=== PATIENT | male | born 1975 | race Hispanic/Latino ===

== ENCOUNTER 2019-10-09 08:04 | Emergency (ER) | payer OTHER ==
[2019-10-09] MEDS ORDERED: IBUPROFEN 600 MG TABLET ONE (09:07)
== END 2019-10-09 10:02 | disposition home or self-care (01) ==
LOC: EDH 08:04
DX: S92.501A Displaced unspecified fracture of right lesser toe(s), initial encounter for closed fracture (principal); Z72.0 Tobacco use; X58.XXXA Exposure to other specified factors, initial encounter; Y93.89 Activity, other specified; Y92.89 Other specified places as the place of occurrence of the external cause; Y99.8 Other external cause status
CPT/HCPCS: 73660

== ENCOUNTER 2025-11-08 15:24 | Emergency (ER) | payer SELFPAY ==
[~2025-11-08] VITALS: Ht 165.1 cm; Wt 78.0 kg
--- NOTE | 2025-11-08 15:41 | ERN ---
ED Note History of Present Illness Stated Complaint: LOWER EXTREMITY PAIN Chief Complaint: Lower Extremity Pain/Injury Time Seen by MD: 15:34 Time Seen by Midlevel: 15:34 Dictation: The patient is a 50-year-old male with history of right hand surgery and eczema who presents to the emergency department with complaints of left knee pain and swelling onset two weeks ago. Patient reports he slipped on mud and twisted his knee. Denies any fall from the event. Patient reports he has been ambulatory but is concerned for the swelling. Denies any fevers. Allergies: Coded Allergies: No Known Drug Allergies (Unverified Allergy, Unknown, 11/08/25) Past Medical History Past Medical History: No Pertinent History Surgical History: None RN Note Reviewed/Agreed w/PFSH: Yes Review of System Dictation Constitutional: Negative for fever,chills, and weight loss Eyes: Negative for injury, pain,redness, and discharge ENT: Negative for injury,pain or swelling Cardiovascular: Negative for chest pain, palpitations, and edema Respiratory: Negative for shortness of breath, cough, and wheezing, Abdomen/GI: Negative for abdominal pain, nausea, vomiting, diarrhea, and constipation Back: Negative for injury and pain : Negative for injury, bleeding and discharge MS/Extremity: Positive for left knee pain and swelling Skin: Negative for rash, and discoloration Neuro: Negative for headache, weakness, numbness, tingling, and seizure Psych: Negative for suicide ideation, homicidal ideation, and hallucinations Initial Vital Sign VS Vital Signs Date Time Temp Pulse Resp B/P (MAP) Pulse Ox O2 Delivery O2 Flow Rate FiO2 11/08/25 15:25 98.4 92 18 149/91 99 Room Air 11/08/25 16:00 0 21 Physical Exam Dictation Vital Signs reviewed General Appearance: Alert, oriented x 3, no acute distress, well developed, nourished. Head and Face: non-traumatic. Eyes: PERRL, pink conjunctivas, eyelid no trauma, anterior chamber with arcus senilis. Ears: Pinnas intact and no signs of trauma or erythema ear canals clear and no discharge TM no erythema Nose: No discharge, no bleeding. Oropharynx: Mouth normal, tongue pink. pharynx clear,no erythema, tonsils no exudates, no abscesses noted, mucous membrane moist Neck: Supple, non-tender, no thyromegaly, no masses, no JVD, no bruits Breast:Deferred Chest:No tenderness, no crepitus, no paradoxical movement, no retractions Lungs:Clear, well-ventilated, symmetric, no rales, no wheezing, no rhonchi, no stridor, good breath sounds bilaterally Heart: Regular rate, regular rhythm, no murmur, no gallops Vascular: left lower leg 1+ edema, scattered mild erythema dorsalis pedis 3+ bilaterally Abdomen: Soft, positive bowel sounds, nondistended, no guarding, nontender, no rebound, no masses no hepatomegaly, no splenomegaly, no Baker's sign, no hernias. Rectal: Deferred Genital: Deferred Neurological: Normal speech, motor function intact, sensory function intact Musculoskeletal: Neck nontender, full range of motion, back nontender, full range of motion, Extremities: nontender, full range of motion , left knee swelling, full range of motion, Skin: Color pink, dry, no turgor, no rash, no lacerations, no abrasions, no contusions. Lymphatic: Deferred Results (Laboratory/Radiology) Laboratory/Radiology Laboratory Tests Test 11/08/25 16:11 White Blood Count 5.3 K/uL (4.8-10.8) Red Blood Count 4.43 MIL/uL (4.50-6.20) L Hemoglobin 14.1 g/dL (14.0-18.0) Hematocrit 40.8 % (42-54) L Mean Corpuscular Volume 92.1 fL (79-99) Mean Corpuscular Hemoglobin 31.8 pg (27.0-33.0) Mean Corpuscular Hemoglobin Concent 34.6 g/dL (32.0-36.0) Red Cell Distribution Width 12.1 % (11.0-15.5) Platelet Count 224 K/uL (130-400) Mean Platelet Volume 8.9 fL (7.5-10.5) Immature Granulocyte % (Auto) 0.2 % (0-1) Neutrophils (%) (Auto) 65.5 % (40.0-77.0) Lymphocytes (%) (Auto) 21.1 % (21.0-51.0) Monocytes (%) (Auto) 10.9 % (3.0-13.0) Eosinophils (%) (Auto) 1.5 % (0.0-8.0) Basophils (%) (Auto) 0.8 % (0.0-5.0) Neutrophils # (Auto) 3.5 K/uL (1.8-7.7) Lymphocytes # (Auto) 1.1 K/uL (1.0-4.8) Monocytes # (Auto) 0.6 K/uL (0.1-1.0) Eosinophils # (Auto) 0.08 K/uL (0.00-0.70) Basophils # (Auto) 0.04 K/uL (0.00-0.20) Absolute Immature Granulocyte (auto 0.01 K/uL (0-1) Nucleated Red Blood Cells 0.0 % (0.0-0.19) Sodium Level 127 mmol/L (136-145) L Potassium Level 3.7 mmol/L (3.5-5.1) Chloride Level 93 mmol/L (101-111) L Carbon Dioxide Level 24 mmol/L (21-32) Blood Urea Nitrogen 4 mg/dL (7-18) L Creatinine 0.5 mg/dL (0.5-1.3) Glomerular Filtration Rate Calc 126 mL/min (>90) Random Glucose 74 mg/dL (70-105) Total Calcium 8.8 mg/dL (8.5-10.1) Labs Reviewed?: Yes ED Course ED Course Orders Procedure Category Date Status Time Knee 3vws Lt RAD 11/08/25 Resulted 15:37 Cbc With Differential LAB 11/08/25 Complete 15:37 Basic Metabolic Panel LAB 11/08/25 Complete 15:37 Ketorolac 60mg/2ml PHA 11/08/25 Complete (Toradol 60mg/2ml) 16:00 0.9%Nacl 1000ml (Ns PHA 11/08/25 Complete 1000ml) 17:00 Current Medications Medications (Trade) Dose Ordered Sig/Fredi Route PRN Reason Start Time Stop Time Status Last Admin Dose Admin Ketorolac Tromethamine (toRADol 60MG/ 2ML) 60 mg ONCE ONCE IM 11/08/25 16:00 11/08/25 16:01 DC Sodium Chloride 1,000 ml @ 0 mls/hr ONCE ONCE IV 11/08/25 17:00 11/08/25 17:01 DC Vital Signs Date Time Temp Pulse Resp B/P (MAP) Pulse Ox O2 Delivery O2 Flow Rate FiO2 11/08/25 16:00 98.4 88 18 141/76 99 Room Air* 0 21 11/08/25 15:25 98.4 92 18 149/91 99 Room Air Medical Decision Making MDM The patient is a 50-year-old male with history of right hand surgery and eczema who presents to the emergency department with complaints of left knee pain and swelling onset two weeks ago. Patient reports he slipped on mud and twisted his knee. Denies any fall from the event. Patient reports he has been ambulatory but is concerned for the swelling. Denies any fevers. Differential diagnosis: Knee sprain, knee effusion, DVT, cellulitis I was informed by the nurse that patient left AMA. Reports he needs to go DX & DISP Disposition: AMA Departure Condition: Stable Referrals: SELF,REFERRAL (PCP) I have reviewed the case, and I agree with, Diagnosis and Plan [facility] Nov 08, 2025 15:41
[2025-11-08 16:00] VITALS: BP 141/76; PULSE 88; RESP 18; TEMP 98.4; O2SAT 99
[2025-11-08 16:18] LABS: IMMATURE GRANULOCYTE ABSOLUTE 0.01 K/uL (0-1); NUCLEATED RED BLOOD CELLS 0.0 % (0.0-0.19); PLATELET COUNT (AUTO) 224 K/uL (130-400); RED BLOOD CELL COUNT(AUTO) 4.43 MIL/uL (4.50-6.20); RED CELL DISTRIBUTION WIDTH 12.1 % (11.0-15.5); WHITE BLOOD COUNT (AUTO) 5.3 K/uL (4.8-10.8)
[2025-11-08 16:38] LABS: CREATININE 0.5 mg/dL (0.5-1.3); GLOMERULAR FILTR. RATE CALC 126.0 mL/min (>90); GLUCOSE,RANDOM 74.0 mg/dL (70-105); SODIUM SERUM 127.0 mmol/L (136-145); UREA NITROGEN, BLOOD 4.0 mg/dL (7-18)
--- NOTE | 2025-11-08 16:51 | HMCIMG ---
EXAM: CR left Knee, 3 View. CLINICAL HISTORY: pain, swelling COMPARISON: None provided. FINDINGS: BONES: No acute fracture or aggressive appearing osseous lesion. JOINTS: The joint spaces show no significant degenerative disease. There is no joint effusion appreciated. SOFT TISSUES: The soft tissues are unremarkable. IMPRESSION: No acute osseous pathology evident. /[place]
[2025-11-08] MEDS: 0.9%NACL 1000ML 1,000 ML IV ONE (17:05)
--- NOTE | 2025-11-08 17:05 | NUR ---
PT AOX4 REFUSING PAIN MEDICATION, PT STATES HE NEEDS TO LEAVE RIGHT NOW PT NOT READY FOR DISACHARGE SIGNED AMA FORM. EXPLAINED THE POSSIBOLE RISKS OF LEAVING AGAINST MEDICAL ADVICE VERBALIZED UNDERSTANDING AMA FORM SIGNED.
== END 2025-11-08 17:23 | disposition left against medical advice (07) ==
LOC: EDH 15:24
DX: M25.562 Pain in left knee (principal); R22.42 Localized swelling, mass and lump, left lower limb; Z53.29 Procedure and treatment not carried out because of patient's decision for other reasons; W18.49XA Other slipping, tripping and stumbling without falling, initial encounter; Y93.89 Activity, other specified; Y92.89 Other specified places as the place of occurrence of the external cause; Y99.8 Other external cause status
CPT/HCPCS: 99284; 80048; 85025; 36415; 73562; J1885; J7030